=== PATIENT | male | born 1990 | race Caucasian/White ===

== ENCOUNTER 2017-05-08 23:44 | Emergency (ER) | payer SELFPAY ==
[2017-05-09] MEDS ORDERED: Sodium Chloride 0.9% 1,000 ML IV STA (00:01)
[2017-05-09 00:07] VITALS: BP 126/83; PULSE 70; RESP 18; TEMP 97.6; O2SAT 100
--- NOTE | 2017-05-09 00:38 | ED PDOC ---
Syncope/Near Syncope/Dizziness Time Seen by Provider: 05/09/17 00:00 Chief Complaint (Nursing): Syncope Chief Complaint (Provider): Syncope History Per: Patient History/Exam Limitations: no limitations Current Symptoms Are (Timing): Gone Now Number Of Syncopal Episodes: 1 Associated Symptoms Preceding Syncopal Episode: Lightheadedness Fall Associated With With Symptoms: Yes, No Injury As Result Of Fall Additional Complaint(s): 27 year old male presents to ED due to syncopal episode and has no past medical history. Patient states that he was eating when he developed a severe wave of nausea, causing him to go to the bathroom where he prostrated secondary to lightheadedness. Cousin states that at the time he heard a 'thud', and found the patient pale, diaphoretic, and unconscious. Notes that LOC lasted 30 seconds , and patient remembers his cousin standing over him. Confirms that he does feel better in the ED and that his nausea and lightheadedness have resolved. Patient states that he is currently visiting from [place] and participated in a [place] from [facility] to [place]. PCP: [facility] Past Medical History Reviewed: Historical Data, Nursing Documentation, Vital Signs Vital Signs: Last Vital Signs Temp 97.6 F 05/08/17 23:49 Pulse 70 05/08/17 23:49 Resp 18 05/08/17 23:49 BP 126/83 05/08/17 23:49 Pulse Ox 100 05/08/17 23:49 - Medical History PMH: No Chronic Diseases - Surgical History Surgical History: No Surg Hx - Family History Family History: States: No Known Family Hx - Social History Current smoker - smoking cessation education provided: No Ex-Smoker (has not smoked in the last 12 months): No Alcohol: Occasional Drugs: Denies - Allergies Allergies/Adverse Reactions: Allergies Allergy/AdvReac Type Severity Reaction Status Date / Time Milk Containing Products Allergy ANAPHYLAXIS Verified 05/08/17 23:49 Review of Systems ROS Statement: Except As Marked, All Systems Reviewed And Found Negative Gastrointestinal: Positive for: Nausea (resolved) Neurological: Positive for: Dizziness (lightheadedness - resolved), Other ( syncopal episode) Physical Exam - Reviewed Nursing Documentation Reviewed: Yes Vital Signs Reviewed: Yes - Physical Exam Appears: Positive for: Non-toxic, No Acute Distress Head Exam: Positive for: ATRAUMATIC Skin: Positive for: Normal Color, Warm, Dry Eye Exam: Positive for: Normal appearance, EOMI, PERRL ENT: Positive for: Normal ENT Inspection Neck: Positive for: Normal, Painless ROM, Supple Cardiovascular/Chest: Positive for: Regular Rate, Rhythm. Negative for: Murmur Respiratory: Positive for: Normal Breath Sounds. Negative for: Respiratory Distress Gastrointestinal/Abdominal: Positive for: Soft. Negative for: Tenderness Back: Positive for: Normal Inspection Extremity: Positive for: Normal ROM. Negative for: Deformity Neurologic/Psych: Positive for: Alert, thermostat mechanic II-XII (intact), Oriented, Cerebellar Tests (intact), Gait (steady). Negative for: Motor/Sensory Deficits - Laboratory Results Result Diagrams: 05/09/17 00:37 05/09/17 00:37 - ECG O2 Sat by Pulse Oximetry: 100 (RA) Pulse Ox Interpretation: Normal Medical Decision Making Medical Decision Makin Initial impression: syncopal event in setting of nausea Initial plan: * EKG * EtOH serum * UDrug screen * PTT/PT * Labs * NS IV * Accucheck 0053 Labs reviewed: no clinically significant abnormalities Patient reports feeling well, no further nausea/lightheadedness Dx: vasovagal syncope Patient is medically stable and ready for discharge. Counseling has been provided and patient is in agreement. Return if symptoms persist or acutely worsen. Scribe Attestation: Documented by Carmen Beasley acting as a scribe for Andrew Saha MD. Scribe Attestation: All medical record entries made by the Scribe were at my direction and personally dictated by me. I have reviewed the chart and agree that the record accurately reflects my personal performance of the history, physical exam, medical decision making, and the department course for this patient. I have also personally directed, reviewed, and agree with the discharge instructions and disposition. Disposition - Clinical Impression Clinical Impression: Vasovagal syncope - Disposition Disposition: Routine/Home Disposition Time: 00:53 Condition: STABLE Instructions: Syncope (ED)
[2017-05-09 00:42] LABS: BASO % 0.7 % (0.0-2.0); EOS # 0.4 K/uL (0.0-0.7); EOS % 6.4 % (0.0-4.0); HEMOGLOBIN 13.2 g/dL (12.0-18.0); LYMPH # 1.2 K/uL (1.0-4.3); MEAN CELL VOLUME 93.5 fl (80.0-94.0); MEAN CORPUSCULAR HEMOGLOBIN 30.6 pg (27.0-31.0); MEAN CORPUSCULAR HGB CONC 32.7 g/dL (33.0-37.0); MEAN PLATELET VOLUME 8.6 fl (7.2-11.7); MONO # 0.7 K/uL (0.0-0.8); MONO % 10.2 % (0.0-10.0); NEUT # 4.1 K/uL (1.8-7.0); NEUT % 63.7 % (50.0-75.0); NRBC % 0.1 % (0.0-0.0); RBC 4.31 Mil/uL (4.40-5.90); RED CELL DISTRIBUTION WIDTH 14.3 % (11.5-14.5); WHITE BLOOD COUNT 6.4 K/uL (4.8-10.8)
[2017-05-09 00:50] LABS: ALB/GLOB RATIO 1.3 (1.0-2.1); ALT/SGPT 41 U/L (21-72); AST/SGOT 32 U/L (17-59); BLOOD UREA NITROGEN 19 mg/dl (9-20); CALCIUM 8.6 mg/dL (8.4-10.2); GFR AFRICAN-AMERICAN > 60; GFR NON-AFRICAN AMERICAN > 60
[2017-05-09 01:11] LABS: PARTIAL THROMBOPLASTIN TIME 22.9 Seconds (25.6-37.1)
--- NOTE | 2017-05-09 17:59 | CARD ---
APPROVED REPORT EKG Measurement Heart [id number] <Conclusion> Normal sinus rhythm Normal ECG
== END 2017-05-09 01:23 | disposition home or self-care (01) ==
LOC: H.ER 23:44
DX: R55 Syncope and collapse (principal)
CPT/HCPCS: 80053; 85025; 85610; 85730; 93005; 96360; 99285; G0480; J7040